=== PATIENT | male | born 1965 ===

== ENCOUNTER 2017-04-10 12:55 | Emergency (ER) | payer MEDICAID, OTHER ==
[2017-04-10 13:03] VITALS: RESP 18; O2SAT 98
[2017-04-10] MEDS ORDERED: Sodium Chloride 0.9% 1,000 ML IV ONE ×2 (14:07→15:21)
[2017-04-10] MEDS ORDERED: Sodium Chloride 0.9% 1,000 ML ONE ×2 (14:15→15:28)
[2017-04-10 14:31] LABS: BASO # 0.1 K/uL (0.0-0.2); BASO % 0.6 % (0.0-2.0); EOS # 0.1 K/uL (0.0-0.7); EOS % 0.7 % (0.0-4.0); HEMATOCRIT 42.1 % (35.0-51.0); LYMPH # 3.3 K/uL (1.0-4.3); LYMPH % 32.9 % (20.0-40.0); MEAN CELL VOLUME 90.2 fL (80.0-94.0); MEAN CORPUSCULAR HEMOGLOBIN 29.6 pg (27.0-31.0); MEAN CORPUSCULAR HGB CONC 32.8 g/dL (33.0-37.0); MEAN PLATELET VOLUME 12.1 fL (7.2-11.7); MONO # 0.8 K/uL (0.0-0.8); MONO % 8.2 % (0.0-10.0); NRBC % 0.1 % (0.0-2.0); RED CELL DISTRIBUTION WIDTH 13.3 % (11.5-14.5); WHITE BLOOD COUNT 9.9 K/uL (4.8-10.8)
[2017-04-10 14:53] LABS: CHLORIDE 96 mmol/L (98-107); SODIUM 131 mmol/L (132-148)
[2017-04-10 14:54] LABS: RBC URINE 2 /hpf (0-3); URINE BACTERIA RARE (<OCC); URINE BILIRUBIN NEGATIVE (NEGATIVE); URINE BLOOD NEGATIVE (NEGATIVE); URINE COLOR Straw (YELLOW); URINE GLUCOSE (UA) 3+ mg/dL (Normal); URINE KETONE 2+ mg/dL (NEGATIVE); URINE LEUKOCYTE ESTERASE TRACE Leu/uL (Negative); URINE PROTEIN NEGATIVE (NEGATIVE); URINE UROBILINOGEN NORMAL mg/dL (0.2-1.0); WBC URINE 3 /hpf (0-5)
[2017-04-10 14:56] LABS: ALB/GLOB RATIO 1.1 (1.0-2.1); ALKALINE PHOSPHATASE 88 U/L (38-126); AST/SGOT 132 U/L (17-59); BILIRUBIN,TOTAL 1.2 mg/dL (0.2-1.3); BLOOD UREA NITROGEN 15 mg/dL (9-20); CARBON DIOXIDE 18 mmol/L (22-30); GFR AFRICAN-AMERICAN > 60; TOTAL PROTEIN 7.7 g/dL (6.3-8.3)
[2017-04-10 14:57] LABS: ALT/SGPT 71 U/L (21-72)
[2017-04-10 15:01] LABS: GLUCOSE,RANDOM 439 mg/dL (75-110)
[2017-04-10 15:03] LABS: POTASSIUM 4.8 mmol/L (3.6-5.2)
[2017-04-10] MEDS ORDERED: (Novolin R) Insulin Human Regular 100 units/ml vial IV ONE (15:22)
[2017-04-10] MEDS ORDERED: (Novolin R) Insulin Human Regular 100 units/ml vial ONE (15:28)
[2017-04-10 15:36] VITALS: BP 120/69; PULSE 70; TEMP 97.8
[2017-04-10 15:52] LABS: VENOUS BLOOD GAS BASE EXCESS -3.9 mmol/L (0.0-2.0); VENOUS BLOOD GAS PCO2 43 mmHg (40-60); VENOUS BLOOD PH 7.32 (7.32-7.43)
--- NOTE | 2017-04-10 16:25 | C.PDOC ---
Time Seen by Provider: 04/10/17 13:53 Chief Complaint (Nursing): High Blood Sugar History Per: Patient, Family Onset/Duration Of Symptoms: Days Current Symptoms Are (Timing): Still Present Severity: Moderate Current Diabetic Medications: Oral Medication Associated Infectious Symptoms: Urinary Frequency Treatment Prior To Provider Evaluation: Accucheck Additional History Per: Prior Records Past Medical History Reviewed: Historical Data, Nursing Documentation, Vital Signs Vital Signs: Last Vital Signs Temp 97.8 F 04/10/17 15:36 Pulse 70 04/10/17 15:36 Resp 18 04/10/17 15:36 BP 120/69 04/10/17 15:36 Pulse Ox 98 04/10/17 16:25 - Medical History PMH: Diabetes (diagnosed 1 week ago) Family History: States: Unknown Family Hx - Social History Hx Alcohol Use: No Hx Substance Use: No - Immunization History Hx Tetanus Toxoid Vaccination: No Hx Influenza Vaccination: No Review Of Systems Except As Marked, All Systems Reviewed And Found Negative. Constitutional: Negative for: Fever Cardiovascular: Negative for: Chest Pain Gastrointestinal: Negative for: Vomiting, Abdominal Pain Genitourinary: Negative for: Dysuria Musculoskeletal: Negative for: Neck Pain Skin: Negative for: Rash Neurological: Negative for: Weakness, Numbness, Seizures, Altered Mental Status Physical Exam - Physical Exam Appears: Non-toxic, No Acute Distress Skin: Normal Color, Warm, Dry, No Rash Head: Atraumatic, Normacephalic Eye(s): bilateral: PERRL, EOMI Oral Mucosa: Dry Neck: Normal ROM, Supple Cardiovascular: Rhythm Regular Respiratory: Normal Breath Sounds, No Accessory Muscle Use Gastrointestinal/Abdominal: Soft, No Tenderness Back: No CVA Tenderness Extremity: Normal ROM Neurological/Psych: Oriented x3, Normal Motor, Normal Sensation ED Course And Treatment - Laboratory Results Result Diagrams: 04/10/17 14:16 04/10/17 14:16 Lab Interpretation: Abnormal Interpretation Of Abnormal: Hyperglycemia O2 Sat by Pulse Oximetry: 98 Pulse Ox Interpretation: Normal Progress Note: Pt feels much better and wants to go home. He states he will f/ up with his PMD tomorrow. Reassessment Condition: Improved Progress - Interventions Interventions:: Observation, Intravenous fluid - Medications Administered Intravenous: Other (Insulin) - Data Reviewed Data Reviewed: Lab, Old records - Patient Status Patient status: Mostly improved - Critical Care Citical Care: Excluding Proc Time Critical Care Time: 45 minutes - Continuity of Care Discussed patient case with:: Patient, Family-HIPPA compliant, ED Nurse Disposition Counseled Patient/Family Regarding: Studies Performed, Diagnosis, Need For Followup - Disposition Referrals: Carlos Ramon MD [Medical Doctor] - Disposition: HOME/ ROUTINE Disposition Time: 19:39 Condition: IMPROVED Additional Instructions: Drink plenty of fluids. Take your medications as prescribed. Follow up with your doctor within 1-2 days. Return to the ER if you develop dizziness, vomiting , worsening of symptoms or if you have any other concerns. Instructions: Diabetic Hyperglycemia (ED) Print Language: [place] - Clinical Impression Clinical Impression: Hyperglycemia due to type 2 diabetes mellitus
== END 2017-04-10 20:03 | disposition home or self-care (01) ==
LOC: C.ER 12:55
DX: E11.65 Type 2 diabetes mellitus with hyperglycemia (principal)
CPT/HCPCS: 80053; 81001; 82009; 82803; 82948; 85025; 96360; 99285; J7040